=== PATIENT | male | born 2000 | race African-American/Black ===

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

== ENCOUNTER 2022-11-08 10:07 | Outpatient (CLI) | payer BC, SELFPAY ==
--- NOTE | 2022-11-09 09:15 | WPDPFTINT ---
PFT Procedure Performed PFT Procedure Performed Spirometry w/o Bronchodil PFT Interpretation Spirometry showed normal expiratory flow rates and a normal FEV1 to FVC ratio of 78%. No post bronchodilator study carried out. The flow volume loop is unremarkable. Impression: Spirometry within normal range
== END 2022-11-08 10:08 | disposition home or self-care (01) ==
PROVIDERS: PCP Family Medicine; Visit Provider Physician Assistant
DX: J45.909 Unspecified asthma, uncomplicated (principal)
CPT/HCPCS: 94375

== ENCOUNTER 2024-09-11 11:52 | Emergency (ER) | payer OTHER, SELFPAY ==
[2024-09-11 12:07] VITALS: BP 111/68; PULSE 61; RESP 18; TEMP 36.9; O2SAT 99
--- NOTE | 2024-09-11 12:48 | ED.MALEGU ---
HPI - Male Genitourinary General Chief complaint: Urogenital-Male Stated complaint: Bleeding Time Seen by Provider: 09/11/24 12:10 Source: patient and RN notes reviewed Mode of arrival: ambulatory Limitations: no limitations History of Present Illness HPI Narrative: 23-year-old male presents Express Care complaining of the penis injury. Patient said earlier this morning was having in intimate session with his girlfriend as he states he was dry humping her with his clothes on and fraction his penis and heard a pop followed by blood coming from his penis. Patient is unsure the blood is from his urethra or from the skin. Patient id put a Band-Aid on his penis afterwards. Patient denies any urinary symptoms, penis pain, testicular scrotal pain, or any other injuries. Patient denies any swelling or bruising to his penis. Patient is uncircumcised states he believes the bleeding is coming from somewhere from his foreskin. Patient is no longer bleeding. Related Data Home Medications ?Medication ?Instructions ?Recorded ?Confirmed ?Last Taken ?Type escitalopram oxalate 20 mg tablet 20 mg PO DAILY 09/11/24 09/11/24 Unknown History methylphenidate HCl 18 mg 18 mg PO DAILY 09/11/24 09/11/24 Unknown History tablet,extended release 24 hr mirtazapine 15 mg tablet 15 mg PO DAILY 09/11/24 09/11/24 Unknown History Allergies Allergy/AdvReac Type Severity Reaction Status Date / Time No Known Allergies Allergy Unknown Verified 09/11/24 12:09 Review of Systems Review of Systems: CONSTITUTIONAL: Denies fever, chills, or sweats. EYES: Denies visual changes, redness, or discharge. ENT: Denies rhinorrhea, congestion, sore throat, or otalgia. CARDIOVASCULAR: Denies chest pain, palpitations, or edema. RESPIRATORY: Denies cough or dyspnea. GASTROINTESTINAL: Denies abdominal pain, nausea, vomiting, or diarrhea. GENITOURINARY: Denies testicular pain/swelling, scrotal pain/swelling, painful reaction, penile discharge, dysuria or hematuria. Positive for bleeding from his penis. SKIN: Denies rash or itching. MUSCULOSKELETAL: Denies back pain, joint pain, or myalgia. NEUROLOGIC: Denies headache, numbness, or weakness. PSYCHIATRIC: Denies anxiety or depression. All other systems reviewed are negative, except as documented in HPI. [facility] Past Medical History Medical History ADHD ADHD Family History Family History Father Depression Anxiety Alcoholism Mother Anxiety Depression Sibling Depression Anxiety Asthma Grandparent Alcoholism Grandparent Alcoholism Social History Social History Smoking status: Current every day smoker Tobacco type: e-cigarettes/vaping Additional smoking assessment comments: currently vapes, x 4yrs. Has tried unsuccessfully to quit in past. Alcohol intake: current Alcohol use details: seldom Lack of Transportation: No Lack of Food: Never True Current Housing: I Have Housing Concerned About Future Housing: No Difficulty Paying Gas/Electric Bills: No Difficulty Paying for Meds: No Currently Unemployed: No Education: High School Diploma/GED Difficulty w/ Childcare or Family Care: No Comments At the time of my signature, I reviewed and agree with the nursing past medical, surgical, social, and family history. There is no relevant family history pertinent to the patient complaint. Exam Narrative: GENERAL: This is a well-nourished, well-developed adult, in no apparent distress. They are non ill-appearing, nontoxic appearing. HEAD: normocephalic, atraumatic. EYES: Sclera clear/white. Conjunctiva normal. Vision is grossly intact. Extraocular movements intact EARS: External ears normal, Hearing grossly intact. NOSE: External nose normal THROAT: Mucous membranes moist, NECK: Neck supple, CARDIOVASCULAR: Regular rate and rhythm RESPIRATORY: Respiratory rate normal, respiratory effort nonlabored, no respiratory distress SKIN: warm, Dry, intact with no suspicious lesions or rash, good texture and turgor. GENITOURINARY: Penis: There is no swelling, bruising, redness to the penis. No tenderness to palpation. No blood, discharge, or tenderness to the meatus of the penis when palpating the glans penis. There is an abrasion present to the inferior surface of the shaft of the penis when the foreskin is retracted. Penis frenulum intact. Testes normal. Scrotum normal. Suspicious lesions or rashes. NEURO: awake, alert, and oriented to person, place and time. There were no obvious focal neurologic abnormalities. Course Course Emergency Course: Portions of this record may have been created with voice recognition software Level of Care: Express Care Visit Vital Signs Vital signs: Vital Signs Temperature 98.5 F 09/11/24 12:07 Pulse Rate 61 09/11/24 12:07 Respiratory Rate 18 09/11/24 12:07 Blood Pressure 111/68 09/11/24 12:07 Pulse Oximetry 99 09/11/24 12:07 Temperature 98.5 F 09/11/24 12:07 Pulse Rate 61 09/11/24 12:07 Respiratory Rate 18 09/11/24 12:07 Blood Pressure 111/68 09/11/24 12:07 Pulse Oximetry 99 09/11/24 12:07 Reviewed MDM - Male Genitourinary MDM Narrative Medical decision making narrative: Likely a penis abrasion from his sexual encounter this morning. Frenulum intact. No blood present in the meatus of the penis. No Evidence of penis fracture. Injury appears to be superficial. Advised patient have close follow-up with PCP or urologist symptoms worsen. Discussed physical exam findings. Advised supportive measures and signs/symptoms to go to the ER. Pt is appropriate for outpt treatment and f/u. Differential Diagnosis Differential diagnosis: Likely priapism, urethritis and other (Penis fracture, penis injury, penis abrasion) Critical Care Time Critical Care Time Critical Care Time: No Discharge Plan Discharge Clinical Impression: Abrasion of penis Qualifiers: Encounter type: initial encounter Qualified Code(s): S30.812A - Abrasion of penis, initial encounter Patient Disposition: Home Condition: Stable Instructions: Foreskin Care (ED) Additional Instructions: Please wash the foreskin daily with mild soap and water. Do not keep your foreskin retracted. It Is likely a penile abrasion that you have. Please follow-up with Urology or your PCP in 3-5 days. Please go to the ER if he develops an erection lasting for hours, severe penis pain, pain and swelling, testicular or scrotal pain, or any signs of infection on your penis such as increased redness, swelling, green/yellow drainage, fevers, or any other concerns. Patient Language: Sami Prescriptions: No Action escitalopram oxalate 20 mg tablet 20 mg PO DAILY methylphenidate HCl 18 mg tablet extended release 24hr 18 mg PO DAILY mirtazapine 15 mg tablet 15 mg PO DAILY Follow-up/Referrals: PHYSICIAN,ENGINEERING DRAWINGS CHECKER [Primary Care Provider] - Esa Kamara MD [Physician] - Time of Disposition: 12:33
== END 2024-09-11 12:36 | disposition home or self-care (01) ==
DX: S30.812A Abrasion of penis, initial encounter (principal); X58.XXXA Exposure to other specified factors, initial encounter; F17.290 Nicotine dependence, other tobacco product, uncomplicated; F90.9 Attention-deficit hyperactivity disorder, unspecified type
CPT/HCPCS: 99212; G0463

== ENCOUNTER 2024-10-07 22:41 | Emergency (ER) | payer OTHER, SELFPAY ==
--- OUTSIDE RECORDS SUMMARY | 2024-10-07 22:43 | XMS_ITS | Continuity of Care Document ---
[facility] Organization [facility] Address [address] [place] [address] Phone Care Team Providers Care Artificial Breast Fabricator Name Role Phone Negro Lowery MD Unavailable Unavailable Allergies, Adverse Reactions, Alerts Substance Reaction Status Criticality No Known Allergies Active No Inform ation Medications Medication Instructions Dosage Effective Dates (start - stop) Status Comments methylphenidate 20 mg tablet take 1 tablet by oral route 2 times every day 20 MG - Active Methylphenidate 10 mg Tab take 1 tablet (10MG) by ORAL route 2 times every day 10 MG - No Longer Active Methylphenidate 5 mg Tab take 1 tablet (5MG) by ORAL route 2 times every day 5 MG - No Longer Active Procedures Procedure Date No Charge Refraction Eye Exam & Treatment Eye Exam & Treatment Eye Exam & Treatment Eye Exam & Treatment Eye Exam & Treatment Eye Exam & Treatment Refraction Eye Exam & Treatment Refraction Eye Exam, New Patient Advance Directives Directive Yes / No Effective Date File Name No Information Encounters Encounter Description Practice Location Reason(s) For Visit Diagnoses Date Provider Providers Copied on [facility] [address], [place], [place], [id number], [place] tel:[phone] [facility] Professional Complete Exam (chief complaint) Routine eye exam 7 Sebastián Tom. [address], [address], [place], [place], [address], . tel:[phone] Referring Provider: Negro Ruiz, [address], [place], [address] . tel:[phone] [facility], [address], [place], [place], [id number], [place] tel:[phone] [facility] Professional No Information 7 Sebastián Tom. [address] [facility], [address], [place], [place], [address], [place]. tel:[phone] [facility], [address], [place], [place], [address], [place] [phone] [facility] Professional routine exam (chief complaint) EYE & VISION EXAMINATION 3-201 5 Sebastián Tom. [address], [address] [place], [address], [place]. tel:[phone] Referring Provider: Negro Ruiz, [address], [place], [address] . tel:[phone] [facility], [address], [place], [place], [address], [place] [phone] [facility] Professional EYE & VISION EXAMINATION 0-201 4 Sebastián Tom. [address] [facility] [address], [address] [place], [address], [place]. tel:[phone] Referring Provider: Negro Ruiz, [address], [place], [address] . tel:[phone] [facility], [address], [place], [place], [address], [place] tel:[phone] SEC [place] [facility] Professional EYE & VISION EXAMINATION Jan-201 2 Sebastián Tom. [address], [address], [place], [place], [address], . tel:[phone] Referring Provider: Negro Ruiz, [address], [place], [address] . tel:[phone] [facility] Eye [facility], [address], [place], [place], [id number], [place] tel:[phone] SEC [place] [facility] No Information Jan- 2 Sebastián Tom. [address], [address], [place], [place], [address], [place]. tel:[phone] [facility] Eye [facility], [address], [place], [place], [address], [place] tel:[phone] [facility] Professional No Information May- 3-201 1 Sebastián Tom. [address], [facility] [address], [place], [place], [address], [place]. tel:[phone] [facility] Eye [facility], [address] [place] [address] [address], [place], [place], [address], [place] tel:[phone] [facility] No Information Dec-0 8-200 9 Mohr Soo. [address] , [address], [place], [place], [facility], [place]. tel:[phone] [facility] Eye [facility], [address], [place], [place], [address], [place] tel:[phone] [facility] No Information Sep-0 9-200 8 Mohr Soo. [address] , [address], [place], [place], [facility], [place]. tel:[phone] [facility] Eye [facility], [address], [place], [place], [address], [place] tel:[phone] [facility] No Information 7 Fani Vann. [address] , [address], [place], [address], [place]. tel:[phone] Family History Family Member Type Diagnosis Age At Onset No Information Payers Payer name Insurance type Covered libertarian ID Joey viera(s) [place] [id number] Social History Type Description Quantity Date Captured Comments Alcohol Use Details No Caffeine Use Details 6 cups per day Tobacco Use Status No Information Smoking Status Never smoker Sex Male Chief Complaint And Reason For Visit From encounter dated '05/23/2016 15:15'. Complete Exam (chief complaint). Description: The 15 year 7 month old male presents for Complete Exam in the right eye and left eye. Pt states he is haivng trouble when playing soccer and seeing board at school. Pt states no pain, irritation or discomfort OU. Reason For Referral Reason For Referral No Information History Of Present Illness Encounter Date Complaint History Of Prese nt Illness Complete Exam The 15 year 7 mo nth old male presents for Complete Exam in the right eye and left eye. Pt states he is haivng trouble when playing soccer and seeing board at school. Pt states no pain, irritation or discomfort OU. routine exam Patient presents for a complete exam. Patient denies any changes in vision. Functional Status Date Functional Assessmen t No Information Instructions Date Instruction Additional Infor wilfrido Routine eye exam - E ducational material given Related to Routine eye exam Follow up - Return i n 2 years with Negro Lowery M.D. for Complete Exam. Impression/Plan - Di scussed diagnosis in detail with patient. No signs of cataracts, Glaucoma or AMD OU. Glasses not needed at this time. Return to clinic in 2 years for complete exam or sooner with any problems. - Return in 1-2 year s with Negro Lowery M.D. for Complete Exam Related to EYE & VISION EXAMINATION - Doing good, will c ontinue to monitor. Return in 1-2 years for complete exam or sooner with any problems. Related to EYE & VISION EXAMINATION - 2yrs Related to EYE & VISION EXAMINATION nl eye exam - observation Relate d to EYE & VISION EXAMINATION - 1 year complete Related to EYE & VISION EXAMINATION EYE & VISION EXAMFELICIANO BANG - established, stable - will continue to monitor - Nl exam. No Mrx. Will monitor. Related to EYE & VISION EXAMINATION Assessments Type Assessment Date assessment Routine eye exam Patient Care Teams Name Effective Dates (start - stop) Status Members No Information
--- OUTSIDE RECORDS SUMMARY | 2024-10-07 22:43 | XMS_ITS | Patient Health Record ---
Author Organization Dr Jens Polanco Address [address] [place] [address] Support Name Relationship Address Phone Steven Clement Guarantor Unknown [phone] Reason For Referral No Information Medications Medication SIG (Take, Route, Frequency, Duration) Notes Start Date End Date Status Vyvanse 40 MG 1 capsule in the mor megan Orally Once a day; Duration: 30 days 05/02/2021 Active Problems Problem Type SNOMED Code ICD Code Onset Dates Problem Status W/U Status Risk Notes Problem Attention-defici t hyperactivity disorder, predominantly inattentive type (F90.0) Active confirmed Plan Of Treatment No Information
--- OUTSIDE RECORDS SUMMARY | 2024-10-07 22:43 | XMS_ITS | Referral Summary ---
Author Organization [facility] [place] Address [address] [place] [address] Care Team Providers Care Pathology Teacher Name Role Phone Aquiles Hankins MD Primary Care Provider Allergies No known active allergies Medications escitalopram (LEXAPRO) 10 mg tablet Take 1 tablet (10 mg total) by mouth daily 04/17/2023 Active Active Problems Problem Noted Date Diagnosed Date Preventative health care 05/01/2024 Assessment & Plan (05/01/2024 2:48 PM DENTURE CONTOUR WIRE SPECIALIST): - New or chronic worsening conditions: no significant acute issues on this visit - Mental health: stable, hx of anxiety and depression - Dental health: Recommend regular dental care and cleaning. Discussed importance of regular tooth brushing, flossing, and dental visits. - Nutrition: Recommend moderation in sodium/caffeine intake, saturated fat and cholesterol, caloric balance, sufficient intake of fresh fruits, vegetables - Exercise: Recommend to exercise at least 30 minutes moderate to vigorous exercise most days of the week. (minimum 150 minutes weekly) - Immunizations: Age and sex appropriate immunizations reviewed and offered No results found for: PSA SUDARSHAN (generalized anxiety disorder) 05/01/2024 Assessment & Plan (05/01/2024 2:47 PM DENTURE CONTOUR WIRE SPECIALIST): - chronic condition, stable status - hx of anxiety and depression - currently of Lexapro 10 mg daily - continue current management Immunizations Immunization Administration Dates Next Due DTaP 06/27/2007, 7,02/22/2006,07/16 HPV, Quadrivalent 03/25/2012,11/15/2011,09/13/19 12 Hep A, Pediatric 08/27/2015,06/21/2006, 6 Hep B, Adolescent or Pediatric 06/21/2006,2005,07/16/2002 Hib (PRP-OMP) 07/16/2002 Hib (PRP-T) 02/22/2006 IPV 06/21/2006,02/22/2006,07/16/2002 Influenza, Live, Intranasal, Quadrivalent 11/28/2013 Influenza, Quadrivalent, Annmarie l Culture-based MDCK, Preservative Free, Antibiotic Free, Intramuscular 12/06/2021,01/13/2019 Influenza, Quadrivalent, Spl it, Preservative Free, Intramuscular 12/09/2017,12/17/2015,11/29/2012 Influenza, Trivalent, Preser vative Free, Intramuscular 03/16/2017,02/14/2012 Influenza, Unspecified 05/01/2024(Deferr ed: Patient Refused),03/05/2023(Deferred: Patient Refused) MMR 06/21/2006,02/22/2006 Meningococcal B, OMV (Bexsero) 02/13/2018,2017 Meningococcal Conjugate (Menveo) 10/17/2017 Meningococcal MCV4P (Menactra) 08/18/2013 Pneumococcal Conjugate 7-Valent 02/22/2006,07/06 Tdap 07/05/2012 Varicella 06/21/2006,02/22/2006 Social History Tobacco Use Types Packs/Day Years Used Date Smoking Tobacco: Never Smokeless Tobacco: Never Tobacco Cessation:Counseling Given: Not Answered PHQ-2 Answer Date Recorded PHQ-2 Total Score (If total score is 3 or more points, staff should administer the PHQ-9) 0 05/01/2024 Sex and Gender Information Value Date Recorded Sex Assigned at Not on file Legal Sex Male 7:19 PM CDT Gender Identity Not on file Sexual Orientation Not on file Last Filed Vital Signs Vital Sign Reading Time Taken Comments Blood Pressure 124/70 05/01/2024 2:39 PM DENTURE CONTOUR WIRE SPECIALIST Pulse 68 05/01/2024 2:39 PM DENTURE CONTOUR WIRE SPECIALIST Temperature 36.7 C (98.1 F) 05/01/2024 2:39 PM DENTURE CONTOUR WIRE SPECIALIST Respiratory Rate - - Oxygen Saturation 99% 05/01/2024 2:39 PM DENTURE CONTOUR WIRE SPECIALIST Inhaled Oxygen Concentration - - Weight 61.1 kg (134 lb 9.6 oz) 05/01/2024 2:39 P M DENTURE CONTOUR WIRE SPECIALIST Height 180.3 cm (5' 11) 05/01/2024 2:39 PM DENTURE CONTOUR WIRE SPECIALIST Body Mass Index 18.77 05/01/2024 2:39 PM DENTURE CONTOUR WIRE SPECIALIST Plan of Treatment Not on file Insurance [facility] Care Teams Pathology Teacher Relationship Specialty Start Date End Date Aquiles Hankins MD [address] [place] [address] PCP - General Family Medicine 08/13/24
--- OUTSIDE RECORDS SUMMARY | 2024-10-07 22:43 | XMS_ITS | Clinical Summary ---
Author Organization [facility] Formerly named [facility] [address] Address [address] [place] [address] Care Team Providers Care Geriatrics Physician Name Role Phone Aquiles Hankins MD Primary Care Provider Allergies No known active allergies Medications escitalopram (LEXAPRO) 10 mg tablet Take 1 tablet (10 mg total) by mouth daily 04/17/2023 Active Active Problems Problem Noted Date Diagnosed Date Preventative health care 05/01/2024 Assessment & Plan (05/01/2024 2:48 PM PRINCIPAL ENGINEER): - New or chronic worsening conditions: no [...] 05/01/2024 Assessment & Plan (05/01/2024 2:47 PM PRINCIPAL ENGINEER): - chronic condition, stable status - hx [...] on file Sexual Orientation Not on file Obstetrics History Last Filed Vital Signs Vital Sign Reading Time Taken Comments Blood Pressure 124/70 05/01/2024 2:39 PM PRINCIPAL ENGINEER Pulse 68 05/01/2024 2:39 PM PRINCIPAL ENGINEER Temperature 36.7 C (98.1 F) 05/01/2024 2:39 PM PRINCIPAL ENGINEER Respiratory Rate - - Oxygen Saturation 99% 05/01/2024 2:39 PM PRINCIPAL ENGINEER Inhaled Oxygen Concentration - - Weight 61.1 kg (134 lb 9.6 oz) 05/01/2024 2:39 P M PRINCIPAL ENGINEER Height 180.3 cm (5' 11) 05/01/2024 2:39 PM PRINCIPAL ENGINEER Body Mass Index 18.77 05/01/2024 2:39 PM PRINCIPAL ENGINEER Plan of Treatment Health Maintenance Due Date Last Done Comments Hepatitis C Screening 2001 DTaP/Tdap/Td Vaccine (6 - Td or Tdap) 07/05/2022 07/05/2012, 06/27/2007, 06/21/2006, Additional history exists Covid-19 Vaccine (2023-2 5 season) 2023 12/06/2021, 06/20/2020, 05/30/2020 Influenza Vaccine (#1) 2024 , 01/13/2019, 12/09/2017, Additional history exists Depression Screening 05/01/2025 05/01/2024 Regular Well Visit/Exam 18-64 05/01/2025 05/01/2024 Pneumococcal vaccine <65 Completed 02/22/2006, 0506/2002 Hepatitis B Screening Completed 06/21/2006 , 02/22/2006, 07/16/2002 Varicella Vaccines Completed 06/21/2006, 02/22/2006 HPV Vaccines Completed 03/25/2012, 11/03, 09/13/2011 Meningococcal B Vaccine Completed 02/13/2018, 10/17 [facility] Care Teams Geriatrics Physician Relationship Specialty Start Date End Date Aquiles Hankins MD [address] [place] [address] PCP - General Family Medicine 08/13/24
--- OUTSIDE RECORDS SUMMARY | 2024-10-07 22:43 | XMS_ITS | Clinical Summary ---
Author Organization [facility] Address [address] [place] [address] Care Team Providers Care Software Tools Developer Name Role Phone Unavailable Primary Care Provider Unavailabl e Allergies No known active allergies Medications traZODone (DESYREL) 50 mg tablet Take one-half to one tablet by mouth nightly as needed for insomnia 30 Tablet 03/17/2023 12:47 PM MATTRESS FILLER 03/17/2023 Active escitalopram oxalate (Lexapro) 10 mg tablet TAKE 1 TABLET BY MOUTH DAILY 30 Tablet 04/19/2023 7:30 PM MATTRESS FILLER 04/17/2023 Active escitalopram oxalate (Lexapro) 20 mg tablet Take 1 tablet by mouth once a day 90 Tablet 06/18/2023 3:03 PM CDT 05/15/2023 Active escitalopram oxalate (Lexapro) 20 mg tablet Take 1 Tablet (20 mg) by mouth daily. 90 Tablet 07/20/2023 11:29 AM CDT 07/17/2023 Active traZODone (DESYREL) 50 mg tablet Take 0.5-1 Tablets (25-50 mg) by mouth nightly as needed for insomnia. 30 Tablet 2 07/20/2023 11:29 AM CDT 07/17/2023 Active escitalopram oxalate (Lexapro) 20 mg tablet Take 1 Tablet (20 mg) by mouth daily. 90 Tablet 09/12/2023 3:56 PM CDT 09/11/2023 Active mirtazapine (REMERON) 15 mg tablet Take 1 Tablet (15 mg) by mouth daily at bedtime. 90 Tablet 09/27/2023 Active escitalopram oxalate (Lexapro) 20 mg tablet Take 1 Tablet (20 mg) by mouth daily. 90 Tablet 12/04/2023 Active mirtazapine (REMERON) 15 mg tablet Take 1 Tablet (15 mg) by mouth daily at bedtime. 90 Tablet 12/04/2023 Active Encounters Date Type Department Care Team Description 08/19/2024 External Device Data ST[facility] ABSTRACTION Provider, Abstract 07/24/2024 External Device Data ST[facility] ABSTRACTION Provider, Abstract 07/24/2024 External Device Data ST[facility] ABSTRACTION Provider, Abstract 07/24/2024 External Device Data ST[facility] ABSTRACTION Provider, Abstract 07/23/2024 External Device Data ST[facility] ABSTRACTION Provider, Abstract 07/22/2024 External Device Data STL ABSTRACTION Provider, Abstract from Last 3 Months Social History Tobacco Use Types Packs/Day Years Used Date Smoking Tobacco: Never Assessed Sex and Gender Information Value Date Recorded Sex Assigned at Not on file Legal Sex Male 11:16 AM MATTRESS FILLER Gender Identity Not on file Sexual Orientation Not on file Plan of Treatment Health Maintenance Due Date Last Done Comments HPV VACCINES (1 - Male 3-dose series) 2016 DTAP/TDAP/TD VACCINES (1 - Tdap) 2020 HEPATITIS B VACCINES (1 of 3 - 19+ 3-dose series) 10/03 INFLUENZA VACCINE (#1) 2024 Insurance [employer] (INTERNAL) [facility] [employer]
[2024-10-07 22:44] VITALS: BP 131/92; PULSE 64; RESP 20; TEMP 36.6; O2SAT 100
--- OUTSIDE RECORDS SUMMARY | 2024-10-08 01:55 | XMS_ITS | Clinical Summary ---
Author Organization [facility] Address [address] [place] [address] Care Team Providers Care Plastic Surgery Manager Name Role Phone Unavailable Primary Care Provider Unavailabl e Allergies No known active allergies Medications traZODone (DESYREL) 50 mg tablet Take one-half to one tablet by mouth nightly as needed for insomnia 30 Tablet 03/17/2023 12:47 PM HYDRO OPERATOR 03/17/2023 Active escitalopram oxalate (Lexapro) 10 mg tablet TAKE 1 TABLET BY MOUTH DAILY 30 Tablet 04/19/2023 7:30 PM HYDRO OPERATOR 04/17/2023 Active escitalopram oxalate (Lexapro) 20 mg [...] on file Legal Sex Male 11:16 AM HYDRO OPERATOR Gender Identity Not on file Sexual Orientation [...]
--- OUTSIDE RECORDS SUMMARY | 2024-10-08 01:55 | XMS_ITS | Continuity of Care Document ---
Author Organization [facility] Address [address] [place] [address] Phone Care Team Providers Care Bonding Supervisor Name Role Phone Negro Lowery MD Unavailable [...] Diagnoses Date Provider Providers Copied on [facility]counter [facility], [address], [place], [place], [id number], [place] tel:[phone] [facility] Professional Complete Exam (chief complaint) Routine eye exam 7 Sebastián Tom. [address], [address], [place], [place], [address], . tel:[phone] Referring Provider: Negro Ruiz, [address], [place], [address] . tel:[phone] [facility], [address], [place], [place], [address], [place] tel:[phone] [facility] Professional No Information 7 Sebastián Tom. [address] [facility], [address], [place], [place], [address], [place]. tel:[phone] [facility], [address], [place], [place], [address], [place] [phone] [facility] Professional routine exam (chief complaint) EYE & VISION EXAMINATION 3-201 5 Sebastián Tom. [address], [address] [place], [address], [place]. tel:[phone] Referring Provider: Negro Ruiz, [address], [place], [address] . tel:[phone] [facility], [address], [place], [place], [address], [place] [phone] [facility] Professional EYE & VISION EXAMINATION 0-201 4 Sebastián Tom. [address] [facility], [address] [place], [address], [place]. tel:[phone] Referring Provider: Negro Ruiz, [address], [place], [address] . tel:[phone] [facility], [address], [place], [place], [address], [place] tel:[phone] SEC [place] Professional EYE & VISION EXAMINATION Jan-201 2 Sebastián Tom. [address], [address], [place], [place], [address], . tel:[phone] Referring Provider: Negro Ruiz, [address], [place], [address] . tel:[phone] [facility] Eye [facility], [address], [place], [place], [address], [place] tel:[phone] SEC [place] [facility] No Information Jan- 2 Sebastián Tom. [address], [address], [place], [place], [address], [place]. tel:[phone] [facility] Eye [facility], [address], [place], [place], [address], [place] tel:[phone] [facility] Professional No Information May- 3-201 1 Sebastián Tom. [address], [facility] [address], [place], [place], [address], [place]. tel:[phone] [facility] Eye [facility], [address] [place] [address] [address], [place], [place], [address], [place] tel:[phone] [facility] No Information Dec-0 8-200 9 Mohr Soo. [address] , [address], [place], [place], [facility], [place]. tel:[phone] [facility] Eye [facility], [address], [place], [place], [address], [place] tel:[phone] [facility] No Information Sep-0 9-200 8 Mohr Soo. [address] , [address], [place], [place], [facility], [place]. tel:[phone] [facility] Eye [facility], [address], [place], [place], [address], [place] tel:[phone] [facility] No Information 7 Fani Vann. [address] , [address], [place], [address], [place]. tel:[phone] Family History Family Member Type Diagnosis Age At Onset No Information Payers Payer name Insurance type Covered alliance party ID Joey viera(s) [place] [id number] Social History Type Description Quantity Date Captured [...]
--- OUTSIDE RECORDS SUMMARY | 2024-10-08 01:55 | XMS_ITS | Clinical Summary ---
Author Organization [facility] [place] Address [address] [place] [address] Care Team Providers Care Property Coordinator Name Role Phone Aquiles Hankins MD Primary Care Provider Allergies No known active allergies Medications escitalopram (LEXAPRO) 10 mg tablet Take 1 tablet (10 mg total) by mouth daily 04/17/2023 Active Active Problems Problem Noted Date Diagnosed Date Preventative health care 05/01/2024 Assessment & Plan (05/01/2024 2:48 PM NIGHT MANAGER): - New or chronic worsening conditions: no [...] 05/01/2024 Assessment & Plan (05/01/2024 2:47 PM NIGHT MANAGER): - chronic condition, stable status - hx [...] Comments Blood Pressure 124/70 05/01/2024 2:39 PM NIGHT MANAGER Pulse 68 05/01/2024 2:39 PM NIGHT MANAGER Temperature 36.7 C (98.1 F) 05/01/2024 2:39 PM NIGHT MANAGER Respiratory Rate - - Oxygen Saturation 99% 05/01/2024 2:39 PM NIGHT MANAGER Inhaled Oxygen Concentration - - Weight 61.1 kg (134 lb 9.6 oz) 05/01/2024 2:39 P M NIGHT MANAGER Height 180.3 cm (5' 11) 05/01/2024 2:39 PM NIGHT MANAGER Body Mass Index 18.77 05/01/2024 2:39 PM NIGHT MANAGER Plan of Treatment Health Maintenance Due Date [...] Meningococcal B Vaccine Completed 02/13/2018, 10/17 Insurance [facility] Care Teams Property Coordinator Relationship Specialty Start Date End Date Aquiles Hankins MD [address] [place] [address] PCP - General Family Medicine 08/13/24
--- OUTSIDE RECORDS SUMMARY | 2024-10-08 01:55 | XMS_ITS | Patient Health Record ---
Author Organization Dr Jens Polanco Address [address] [place] [address] Support Name Relationship Address Phone Steven Clement Guarantor Unknown Reason For Referral No Information Medications Medication [...]
--- OUTSIDE RECORDS SUMMARY | 2024-10-08 01:55 | XMS_ITS | Referral Summary ---
Author Organization [facility] Address [address] [place] [address] Care Team Providers Care Forest Ecologist Name Role Phone Aquiles Hankins MD Primary Care Provider Allergies No known active allergies Medications escitalopram (LEXAPRO) 10 mg tablet Take 1 tablet (10 mg total) by mouth daily 04/17/2023 Active Active Problems Problem Noted Date Diagnosed Date Preventative health care 05/01/2024 Assessment & Plan (05/01/2024 2:48 PM SYSTEM SUPPORT DEVELOPER): - New or chronic worsening conditions: no [...] 05/01/2024 Assessment & Plan (05/01/2024 2:47 PM SYSTEM SUPPORT DEVELOPER): - chronic condition, stable status - hx [...] Comments Blood Pressure 124/70 05/01/2024 2:39 PM SYSTEM SUPPORT DEVELOPER Pulse 68 05/01/2024 2:39 PM SYSTEM SUPPORT DEVELOPER Temperature 36.7 C (98.1 F) 05/01/2024 2:39 PM SYSTEM SUPPORT DEVELOPER Respiratory Rate - - Oxygen Saturation 99% 05/01/2024 2:39 PM SYSTEM SUPPORT DEVELOPER Inhaled Oxygen Concentration - - Weight 61.1 kg (134 lb 9.6 oz) 05/01/2024 2:39 P M SYSTEM SUPPORT DEVELOPER Height 180.3 cm (5' 11) 05/01/2024 2:39 PM SYSTEM SUPPORT DEVELOPER Body Mass Index 18.77 05/01/2024 2:39 PM SYSTEM SUPPORT DEVELOPER Plan of Treatment Not on file Insurance [facility] Care Teams Forest Ecologist Relationship Specialty Start Date End Date Aquiles Hankins MD [address] [place] [address] PCP - General Family Medicine 08/13/24
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
[2024-10-08] MEDS: ACETAMINOPHEN 500 MG TABLET 1000 MG PO (03:10)
[2024-10-08] MEDS: KETOROLAC 30 MG/ML VIAL (*BKC) 15 MG IM (03:12)
== END 2024-10-08 03:34 | disposition home or self-care (01) ==
PROVIDERS: Emergency Provider Student in an Organized Health Care Education/Training Program
DX: S16.1XXA Strain of muscle, fascia and tendon at neck level, initial encounter (principal); F17.290 Nicotine dependence, other tobacco product, uncomplicated; F90.9 Attention-deficit hyperactivity disorder, unspecified type; Z79.899 Other long term (current) drug therapy; V43.52XA Car driver injured in collision with other type car in traffic accident, initial encounter
CPT/HCPCS: 96372; 99283; A9270; J1885